=== PATIENT | male | born 1995 | race Caucasian/White ===

== ENCOUNTER 2025-05-22 16:18 | Emergency (ER) | payer SELFPAY ==
[~2025-05-22] VITALS: Ht 147.3 cm; Wt 72.0 kg
[2025-05-22 16:24] VITALS: O2SAT 97
[2025-05-22] MEDS: TRANEXAMIC ACID 1,000MG/10ML IV ONE (16:55)
[2025-05-22 17:48] LABS: BASOPHILS % 0.5 % (0.0-2.0); EOSINOPHILS % 0.3 % (0.0-5.0); HEMATOCRIT. 43.7 % (42.0-52.0); HEMOGLOBIN. 14.8 g/dL (14.0-18.0); LYMPHOCYTES % 18.8 % (20.0-50.0); MEAN PLATELET VOLUME 8.9 fl (7.4-10.4); MONOCYTES % 6.7 % (2.0-8.0); NEUTROPHILS % 73.7 % (40.0-76.0); PLATELET 317 x1000/uL (130-400); RED BLOOD CELL COUNT 4.97 mill/uL (4.7-6.1); RED CELL DISTRIBUTION WIDTH 12.8 % (11.6-14.6)
[2025-05-22 18:08] LABS: CREATININE 0.7 mg/dL (0.6-1.3); UREA NITROGEN BLOOD 15 mg/dL (9-23)
[2025-05-22 19:01] VITALS: BP 135/93; PULSE 74; RESP 16; TEMP 37.1; O2SAT 99
== END 2025-05-22 19:04 | disposition home or self-care (01) ==
LOC: ER 16:18
DX: K06.8 Other specified disorders of gingiva and edentulous alveolar ridge (principal)
CPT/HCPCS: 36415; 80048; 81025; 85025; 96374; 99283

== ENCOUNTER 2025-10-15 21:40 | Emergency (ER) | payer MEDICAID ==
[~2025-10-15] VITALS: Ht 152.4 cm; Wt 67.8 kg
[2025-10-15 21:50] VITALS: O2SAT 98
[2025-10-16] MEDS: OXYCODONE HCL/ACETAMINOPHEN 5/325MG TABLET PO ONE (01:50)
[2025-10-16] MEDS: KETOROLAC 15MG/ML VIAL IM ONE (01:51)
[2025-10-16 02:18] VITALS: BP 117/84; PULSE 71; RESP 18; TEMP 36.8; O2SAT 99
== END 2025-10-16 02:23 | disposition home or self-care (01) ==
LOC: ER 21:40
DX: R07.89 Other chest pain (principal)
CPT/HCPCS: 99285; 71045; 93005; 96372; 71250; J1885